=== PATIENT | female | born 1945 | race Caucasian/White ===

== ENCOUNTER 2023-08-23 09:44 | Observation (INO) | payer OTHER ==
[2023-08-23 10:41] LABS: Absolute Lymphocytes (CBC) 1.8 K/uL (0.7-4.9); Hematocrit 39.3 % (36.0-45.0); Lymphocytes % 24.6 % (15.3-44.8); MCV 87.2 fL (80-100); MPV 7.6 fL (7.6-11.3); Platelets 351 thou/uL (152-406); RBC Red Blood Cell Count 4.51 M/uL (3.86-4.86)
[2023-08-23 10:45] LABS: Specific Gravity < 1.005 (1.005-1.030); Urine Bilirubin NEGATIVE (Negative); Urine Blood Negative (Negative); Urine Clarity Clear (Clear); Urine Color Colorless (Yellow); Urine Glucose 4+ (Over) (Negative); Urine Protein NEGATIVE (Negative); Urine Urobilinogen Normal (Normal)
[2023-08-23 10:49] LABS: Protime INR 1.01
[2023-08-23 11:04] LABS: ALT/SGPT 59 U/L (13-56); AST/SGOT 46 U/L (15-37); Albumin 3.8 g/dL (3.4-5.0); Alkaline Phosphatase 101 U/L (45-117); BUN Blood Urea Nitrogen 11 mg/dL (7-18); Barbiturates NEGATIVE (NEGATIVE); Benzodiazepines NEGATIVE (NEGATIVE); Bicarbonate 26 mEq/L (21-32); Bilirubin Direct 0.2 mg/dL (0-0.2); Bilirubin Indirect, Calculated 0.2 mg/dL (0.2-0.8); Bilirubin Total 0.4 mg/dL (0.2-1.0); Cocaine NEGATIVE (NEGATIVE); Glomerular Filtration Rate 81 ml/min (=/>90); Glucose Level 280 mg/dL (74-106); METHAMPHETAM NEGATIVE (NEGATIVE); Methadone NEGATIVE (NEGATIVE); Opiates NEGATIVE (NEGATIVE); Phencyclidine NEGATIVE (NEGATIVE); Protein, Total 7.5 g/dL (6.4-8.2); Sodium Level 139 mEq/L (136-145); THC Cannibis NEGATIVE (NEGATIVE)
--- NOTE | 2023-08-23 11:36 | RAD REPORT ---
EXAM DESCRIPTION: CT - Head Brain Wo Cont - 08/23/2023 10:27 am CLINICAL HISTORY: hallucinations COMPARISON: No comparisons TECHNIQUE: Noncontrast head CT images were obtained without IV contrast. Multiplanar reformats were generated and reviewed. All CT scans are performed using dose optimization technique as appropriate and may include automated exposure control or mA/KV adjustment according to patient size. FINDINGS: No intracranial hemorrhage, mass, or edema. Midline structures are unremarkable. Normal ventricular caliber for age. Levy-white matter differentiation is preserved, without evidence of acute infarct. No abnormal extra- axial fluid collections. Mastoid air cells and visualized portions of the paranasal sinuses are clear. No acute bony findings. IMPRESSION: No evidence of an acute intracranial process.
--- NOTE | 2023-08-23 12:10 | EDPHYS ---
Physician Documentation [facility] Name: Dionne House Age: 77 yrs Sex: Female : 1945 Arrival Date: 08/23/2023 Time: 09:44 Bed 16 Private MD: ED Physician Chano Brasher HPI: 08/23 11:31 This 77 yrs old Female presents to ER via Ambulatory with complaints of Hallucinations. rn 11:31 The patient presents with hallucinations. Onset: The symptoms/episode began/occurred rn last night. Possible causes: unknown. Current symptoms: In the emergency department the patient's symptoms are unchanged from the initial presentation. The patient has not experienced similar symptoms in the past. The patient has not recently seen a physician. Patient reports last night began with hallucinations. Patient is seeing things move such as a trailer. Patient is also seeing people that she knows is not there. Patient is aware that these are hallucinations and not real. No recent medication changes. No head injury. Denies fever. Patient reports had a CAT scan with IV contrast yesterday of the pelvis for pelvic pain and diarrhea recently. Patient thinks she has had contrast before but not sure. Called her dimensional engineer to tell her about the hallucinations and told to come here for evaluation. Patient also reports has been taking a lot of Tylenol lately due to pelvic pain and leg pain.. Historical: - Allergies: 09:59 Ibuprofen; ll1 09:59 Sulfa (Sulfonamide Antibiotics); ll1 - PMHx: 09:59 Diabetes mellitus; Hypertensive disorder; ll1 - PSHx: 09:59 Cholecystectomy; ll1 - Immunization history:: Adult Immunizations up to date. - Social history:: Smoking status: Patient denies any tobacco usage or history of. - Family history:: not pertinent. - Hospitalizations: : No recent hospitalization is reported. ROS: 11:31 Constitutional: Negative for fever, chills, and weight loss, Cardiovascular: Negative rn for chest pain, palpitations, and edema, Respiratory: Negative for shortness of breath, cough, wheezing, and pleuritic chest pain, Abdomen/GI: Negative for nausea, vomiting, diarrhea, and constipation, Back: Negative for injury and pain, : Negative for injury, bleeding, discharge, and swelling, MS/Extremity: Negative for injury and deformity, Skin: Negative for injury, rash, and discoloration, Neuro: Negative for headache, weakness, numbness, tingling, and seizure, Exam: 11:31 Constitutional: This is a well developed, well nourished patient who is awake, alert, rn and in no acute distress. Head/Face: Normocephalic, atraumatic. Eyes: Pupils equal round and reactive to light, extra-ocular motions intact. Neck: No Meningismus. Cardiovascular: Regular rate and rhythm. No pulse deficits. Respiratory: No increased work of breathing, no retractions or nasal flaring. Abdomen/GI: Soft, non-tender MS/ Extremity: Pulses equal, no cyanosis. Neurovascular intact. Full, normal range of motion. Equal circumference. Neuro: Awake and alert, GCS 15, oriented to person, place, time, and situation. Cranial nerves II-XII grossly intact. Motor strength 5/5 in all extremities. Sensory grossly intact. Cerebellar exam normal. Vital Signs: 09:59 BP 178 / 82; Pulse 89; Resp 18; Temp 97.8; Pulse Ox 99% ; Weight 90.72 kg; Height 5 ft. ll1 3 in. ; Pain 0/10; 10:50 BP 158 / 83; Pulse 89; Resp 16 S; Pulse Ox 98% on R/A; kc6 11:42 BP 157 / 82; Pulse 89; Resp 16 S; Pulse Ox 97% on R/A; kc6 09:59 Body Mass Index 35.43 (90.72 kg, 160.02 cm) ll1 09:59 Pain Scale: Adult ll1 MDM: 09:46 Patient medically screened. rn 12:08 Differential Diagnosis: CVA, electrolyte abnormality, hypoglycemia, intracranial bleed, rn UTI, volume depletion. Data reviewed: vital signs, nurses notes, lab test result(s), radiologic studies, CT scan, and as a result, I will admit patient. Consideration of Admission/Observation Patient was admitted/placed on observation. Escalation of care including admission/observation considered. Management of patient was discussed with the following: Hospitalist: Will see and admit patient. Care significantly affected by the following chronic conditions: Diabetes, Hypertension. Counseling: I had a detailed discussion with the patient and/or guardian regarding the historical points, exam findings, and any diagnostic results supporting the discharge/admit diagnosis, lab results, radiology results, the need for further work-up and treatment in the hospital. Response to treatment: There is no appreciated change of the patient's symptoms at this time, and as a result, I will admit patient. ED course: No acute findings and workup today. Patient still having hallucinations. Negative urine. Negative CT head. No medication changes. No evidence of liver damage or elevated ammonia from Tylenol that she has been taken. Will admit to hospitalist service for further workup.. 08/23 10:08 Order name: ETOH Level; Complete Time: 11:21 rn 08/23 10:34 Order name: Basic Metabolic Panel; Complete Time: 11:21 EDMS 08/23 10:34 Order name: Liver (Hepatic) Function; Complete Time: 11:21 EDMS 08/23 10:34 Order name: Acetaminophen Level; Complete Time: 11:21 EDMS 08/23 10:34 Order name: CBC with Automated Diff; Complete Time: 11:21 EDMS 08/23 10:34 Order name: Protime (+INR); Complete Time: 11:21 EDMS 08/23 10:34 Order name: Urinalysis w/ reflexes; Complete Time: 11:21 EDMS 08/23 10:34 Order name: Urine Drug Screen; Complete Time: 11:21 EDMS 08/23 10:36 Order name: AMMONIA; Complete Time: 11:21 ll1 08/23 16:34 Order name: Glucose, Ancillary Testing EDMS 08/23 10:08 Order name: CT Head Brain wo Cont rn 08/23 10:19 Order name: Head Brain Wo Cont; Complete Time: 11:55 EDMS 08/23 13:21 Order name: Brain W/Wo Cont EDMS 08/23 10:08 Order name: IV Start; Complete Time: 10:21 rn Administered Medications: No medications were administered Disposition Summary: 08/23/23 12:11 Hospitalization Ordered Notes: Hospitalization Status: Observation rn Provider: Renny Brasher rn Condition: Stable(08/23/23 12:11) rn Problem: new(08/23/23 12:11) rn Symptoms: are unchanged(08/23/23 12:11) rn Bed/Room Type: Standard rn Location: Telemetry/MedSurg (observation)(08/23/23 16:41) bd Room Assignment: 415(08/23/23 16:41) bd Diagnosis - Visual hallucinations(08/23/23 12:11) rn Forms: - Medication Reconciliation Form rn - SBAR form rn - Leadership Thank You Letter rn Signatures: Dispatcher [employer] EDMS Georgia Deng Chano Roblero MD MD rn Lewis, Lynsay, RN RN ll1 Corrections: (The following items were deleted from the chart) 11:00 10:38 CBC+H.LAB.BRZ ordered. EDMS EDMS 11:00 10:38 BASIC METABOLIC PANEL+C.LAB.BRZ ordered. EDMS EDMS 11:00 10:38 ACETAMINOPHEN+C.LAB.BRZ ordered. EDMS EDMS 11:00 10:38 HEPATIC FUNCTION+C.LAB.BRZ ordered. EDMS EDMS 11:02 10:38 Urinalysis+U.LAB.BRZ ordered. EDMS EDMS 11:02 10:38 PROTIME (+INR)+COAG.LAB.BRZ ordered. EDMS EDMS 11:02 10:38 PTT, ACTIVATED+COAG.LAB.BRZ ordered. EDMS EDMS 11:02 10:38 URINE DRUG SCREEN+UC.LAB.BRZ ordered. EDMS EDMS 12:10 12:10 Home rn rn 12:10 12:10 new rn rn 12:10 12:10 have improved rn rn 12:10 12:10 Stable rn rn 12:10 12:10 Visual hallucinations rn rn 16:11 12:11 Telemetry/MedSurg (observation) rn bd 16:11 12:11 rn bd 16:41 16:11 BR ER HOLD bd bd 16:41 16:11 ERHOLD- bd bd
--- NOTE | 2023-08-23 12:10 | ER ---
Nurse's Notes [facility] Name: Dionne House Age: 77 yrs Sex: Female : 1945 Arrival Date: 08/23/2023 Time: 09:44 Bed 16 Private MD: Diagnosis: Visual hallucinations Presentation: 08/23 09:59 Chief complaint: Patient states: Started seeing things that weren't there between ll1 midnight and 1 AM. Got worse throughout the morning, so she came in. Had CT with IV contrast yesterday. No medicine changes otherwise. Coronavirus screen: Client denies travel out of the [place] in the last 14 days. At this time, the client does not indicate any symptoms associated with coronavirus-19. Ebola Screen: Patient denies travel to an Ebola-affected area in the 21 days before illness onset. Initial Sepsis Screen: Does the patient meet any 2 criteria? No. Patient's initial sepsis screen is negative. Does the patient have a suspected source of infection? No. Patient's initial sepsis screen is negative. Risk Assessment: Do you want to hurt yourself or someone else? Patient reports no desire to harm self or others. Onset of symptoms was August 23, 2023. 09:59 Method Of Arrival: Ambulatory ll1 09:59 Acuity: AMANDA 2 ll1 Historical: - Allergies: 09:59 Ibuprofen; ll1 09:59 Sulfa (Sulfonamide Antibiotics); ll1 - PMHx: 09:59 Diabetes mellitus; Hypertensive disorder; ll1 - PSHx: 09:59 Cholecystectomy; ll1 - Immunization history:: Adult Immunizations up to date. - Social history:: Smoking status: Patient denies any tobacco usage or history of. - Family history:: not pertinent. - Hospitalizations: : No recent hospitalization is reported. Screenin:00 [facility] ED Fall Risk Assessment (Adult) History of falling in the last 3 months, kc6 including since admission No falls in past 3 months (0 pts) Confusion or Disorientation No (0 pts) Intoxicated or Sedated No (0 pts) Impaired Gait No (0 pts) Mobility Assist Device Used No (0 pt) Altered Elimination No (0 pt) Score/Fall Risk Level 0 - 2 = Low Risk. Abuse screen: Denies threats or abuse. Denies injuries from another. Nutritional screening: No deficits noted. Tuberculosis screening: No symptoms or risk factors identified. Assessment: 10:00 General: Appears in no apparent distress. comfortable, Behavior is calm, cooperative, kc6 appropriate for age. Neuro: Level of Consciousness is awake, alert, obeys commands, Oriented to person, place, time, situation, Appropriate for age Reports headache. Cardiovascular: Capillary refill < 3 seconds. Respiratory: Airway is patent Trachea midline Respiratory effort is even, unlabored, Respiratory pattern is regular, symmetrical. GI: No signs and/or symptoms were reported involving the gastrointestinal system. : No signs and/or symptoms were reported regarding the genitourinary system. EENT: No signs and/or symptoms were reported regarding the EENT system. Derm: No signs and/or symptoms reported regarding the dermatologic system. Skin is intact, is healthy with good turgor, Skin is pink, warm \T\ dry. Musculoskeletal: No signs and/or symptoms reported regarding the musculoskeletal system. Circulation, motion, and sensation intact. Capillary refill < 3 seconds, Range of motion: intact in all extremities. 11:00 Reassessment: Patient appears in no apparent distress at this time. No changes from kc6 previously documented assessment. Patient and/or family updated on plan of care and expected duration. Pain level reassessed. Patient is alert, oriented x 3, equal unlabored respirations, skin warm/dry/pink. 12:00 Reassessment: Patient appears in no apparent distress at this time. No changes from kc6 previously documented assessment. Patient and/or family updated on plan of care and expected duration. Pain level reassessed. Patient is alert, oriented x 3, equal unlabored respirations, skin warm/dry/pink. 12:31 Reassessment: Kym Watters (friend) [phone]. kc6 13:00 Reassessment: Patient appears in no apparent distress at this time. No changes from kc6 previously documented assessment. Patient and/or family updated on plan of care and expected duration. Pain level reassessed. Patient is alert, oriented x 3, equal unlabored respirations, skin warm/dry/pink. Vital Signs: 09:59 BP 178 / 82; Pulse 89; Resp 18; Temp 97.8; Pulse Ox 99% ; Weight 90.72 kg; Height 5 ft. ll1 3 in. ; Pain 0/10; 10:50 BP 158 / 83; Pulse 89; Resp 16 S; Pulse Ox 98% on R/A; kc6 11:42 BP 157 / 82; Pulse 89; Resp 16 S; Pulse Ox 97% on R/A; kc6 09:59 Body Mass Index 35.43 (90.72 kg, 160.02 cm) ll1 09:59 Pain Scale: Adult [facility] ED Course: 09:46 Patient arrived in ED. mr 09:46 Chano Brasher MD is Attending Physician. rn 09:50 Arm band placed on Patient placed in an exam room, on a stretcher. ll1 09:52 Anupama Juarez, RN is Primary Nurse. kc6 10:00 Patient has correct armband on for positive identification. Bed in low position. Call kc6 light in reach. Side rails up X 1. Adult w/ patient. Client placed on continuous cardiac and pulse oximetry monitoring. NIBP monitoring applied. 10:01 Triage completed. ll1 10:21 Inserted saline lock: 20 gauge in right antecubital area, using aseptic technique. kc6 Blood collected. Patient maintains SpO2 saturation greater than 95% on room air. 10:28 Head Brain Wo Cont In Process Unspecified. EDMS 10:39 ETOH Level Sent. kc6 12:10 Renny Brasher MD is Hospitalizing Provider. rn 14:15 No provider procedures requiring assistance completed. Patient admitted, IV remains in kc6 place. 16:49 Report given to DENITA Weber. kc6 Administered Medications: No medications were administered Medication: 14:15 VIS not applicable for this client. kc6 Outcome: 12:10 Discharge ordered by . rn 12:11 Decision to Hospitalize by Provider. rn 14:15 Admitted to ER Hold. Please see [facility] for further documentation. kc6 14:15 Condition: good 14:15 Instructed on the need for admit, 17:01 Patient left the ED. kc6 Signatures: Dispatcher [employer] EDMS Marija Vega, Reg Reg Chano Brasher MD MD rn Lewis, Lynsay, RN RN ll1 Anupama Juarez, DENITA RN kc Corrections: (The following items were deleted from the chart) 11:00 10:39 CBC+H.LAB.BRZ drawn and sent. kc6 EDMS 11:00 10:39 BASIC METABOLIC PANEL+C.LAB.BRZ drawn and sent. kc6 EDMS 11:00 10:39 HEPATIC FUNCTION+C.LAB.BRZ drawn and sent. kc6 EDMS 11: 10:39 ACETAMINOPHEN+C.LAB.BRZ drawn and sent. kc6 EDMS 11: 10:39 Urinalysis+U.LAB.BRZ drawn and sent. kc6 EDMS 11: 10:39 PROTIME (+INR)+COAG.LAB.BRZ drawn and sent. 6 EDMS 11: 10:39 PTT, ACTIVATED+COAG.LAB.BRZ drawn and sent. kc6 EDMS 11: 10:39 URINE DRUG SCREEN+UC.LAB.BRZ drawn and sent. [facility] EDMS
--- NOTE | 2023-08-23 13:31 | P.HP ---
Certification for Inpatient Patient admitted to: Observation With expected LOS: <2 Midnights Patient will require the following post-hospital care: None Practitioner: I am a practitioner with admitting privileges, knowledge of patient current condition, hospital course, and medical plan of care. Services: Services provided to patient in accordance with Admission requirements found in Title 42 Section 412.3 of the Code of Federal Regulations Patient History Date of Service: 08/23/23 Reason for admission: Visual hallucinations History of Present Illness: 77-year-old female with history of hwu-bbymfyp-gghfhurij diabetes, hypertension presents to the emergency department chief complaint of visual hallucinations. She reports that on 08/22/2023 she was seen by her [employer]ACH [employer] provider who performed a routine pelvic exam and noted some adnexal tenderness, a subsequent ultrasound was performed at bedside and unable to visualize the ovary. She was then sent for a CT of the abdomen pelvis with p.o. and IV contrast as she is also been having chronic diarrhea for the last [address] showed mild fatty infiltration of the liver no other acute findings. Patient reports once returning home after approximately 1 hour she began to have visual hallucinations seeing people and objects that were not really there. The hallucinations went on to the evening and were worse when she woke up this morning, also complained of a mild headache at that time. She called her [employer] doctor who recommended she come to the hospital for evaluation. At this time she reports her symptoms have improved significantly although she is still having some mild visual hallucinations. She was evaluated in the emergency department her labs were significant for glucose of 280 AST 46 ALT 59 ammonia level normal, no EtOH present in the serum, UDS is negative. Patient does admit to taking approximately 5 g of Tylenol daily for the last few years, counseled on need for reduced dose of Tylenol and follow-up with pain management. Given her ongoing visual loose Nations we will admit her under observation and obtain an MRI. - Past Medical/Surgical History -: Iqu-rzvommn-afbfwblfd diabetes -: Hypertension -: Carpal tunnel repair Psychosocial/ Personal History: Lives at home with her son - Family History Mother -: Cancer Father -: Heart disease Brother -: Heart disease - Social History Alcohol use: No CD- Drugs: No Caffeine use: Yes Place of Residence: Home Review of Systems 10-point ROS is otherwise unremarkable Neurological: Other (Visual hallucinations) Physical Examination - Physical Exam General: Alert, In no apparent distress, Oriented x3 HEENT: Atraumatic, PERRLA, Mucous membr. moist/pink, EOMI, Sclerae nonicteric Neck: Supple, 2+ carotid pulse no bruit, No LAD, Without JVD or thyroid abnormality Respiratory: Clear to auscultation bilaterally, Normal air movement Cardiovascular: Regular rate/rhythm, Normal S1 S2 Gastrointestinal: Normal bowel sounds, No tenderness Musculoskeletal: No tenderness Integumentary: No rashes Neurological: Normal gait, Normal speech, Normal strength at 5/5 x4 extr, Normal tone, Sensation intact, Normal affect - Studies Laboratory Data (last 24 hrs) 08/23/23 08/23/23 08/23/23 10:24 10:24 10:24 WBC 7.50 Hgb 13.1 Hct 39.3 Plt Count 351 PT 11.1 INR 1.01 APTT Sodium 139 Potassium 4.0 BUN 11 Creatinine 0.76 Glucose 280 H Total Bilirubin 0.4 AST 46 H ALT 59 H Alkaline Phosphatase 101 08/23/23 08/23/23 08/23/23 10:08 10:08 10:08 WBC Cancelled Hgb Cancelled Hct Cancelled Plt Count Cancelled PT Cancelled INR Cancelled APTT Cancelled Sodium Cancelled Potassium Cancelled BUN Cancelled Creatinine Cancelled Glucose Cancelled Total Bilirubin Cancelled AST Cancelled ALT Cancelled Alkaline Phosphatase Cancelled Assessment and Plan - Plan Assessment: Visual hallucinations Diabetes mellitus type 0ruv-hhqezfe-gypdwsvws with hyperglycemia Hypertension Fatty liver Chronic accidental acetaminophen overdose Plan: Visual hallucinations Unclear etiology, occurred about 1 hour after receiving p.o. and IV contrast for CT scan Symptoms worse yesterday evening, this morning, seem to be improving No changes in medications or use of sedatives/opiates for CT yesterday No similar episodes in the past No concern for ingestion of hallucinogens or other toxic substances Will obtain MRI with and without contrast Diabetes mellitus type [id number]-onoqdbw-bvexvjcwb with hyperglycemia ACHS Accu-Chek, sliding scale insulin Hypertension Continue home medication once verified Fatty liver Noted on CT scan, also very mild elevations in LFTs Discussed appropriate use of acetaminophen Chronic accidental acetaminophen overdose Patient reports taking over 5 g of acetaminophen daily for the past few years She takes it for pain to her hip, thighs, recommend outpatient follow-up with PCP and pain management Recommend no more than 4 g of acetaminophen daily DVT PPX:lovenox Code status:full Discharge Plan: Home Plan to discharge in: 24 Hours - Advance Directives Does patient have a Living Will: No Does patient have a Durable POA for Healthcare: No - Code Status/Comfort Care Code Status Assessed: Yes (Full code) Critical Care: No Time Spent Managing Pts Care (In Minutes): 55
[2023-08-23] MEDS ORDERED: ONDANSETRON 4 MG/2 ML VIAL IV PRN (14:10)
--- NOTE | 2023-08-23 14:45 | RAD REPORT ---
EXAM DESCRIPTION: MRI - Brain W/Wo Cont - 08/23/2023 2:38 pm CLINICAL HISTORY: visual hallucinations Headache, drowsiness, alteration of awareness COMPARISON: Head Brain Wo Cont dated 08/23/2023 TECHNIQUE: Multi-sequence, multiplanar MR imaging of the brain was performed with contrast. FINDINGS: No intracranial hemorrhage, hydrocephalus, or extra-axial fluid collection. No edema or sh ift of midline structures. No intracranial mass. DWI is negative for acute CVA. The midline structures are normally formed. Mastoid air cells and paranasal sinuses are clear. Post-contrast images show no abnormal enhancement to suggest tumor or infection. IMPRESSION: No acute or concerning intracranial abnormalities. No pathologic post-contrast enhancement suspected.
[2023-08-23 14:46] VITALS: BMI 35.0
[2023-08-23] MEDS: ENOXAPARIN 40 MG/0.4 ML SQ SCH (15:00)
[2023-08-23] MEDS: INSULIN REGULAR (HUMAN) 100 UNIT/ML SQ SCH ×2 (16:28→21:00)
[2023-08-23] MEDS: TRAMADOL HCL 50 MG TAB PO PRN ×2 (16:28→22:42)
[2023-08-23] MEDS ORDERED: ENOXAPARIN 40 MG/0.4 ML SQ ONE (16:38)
[2023-08-23] MEDS ORDERED: TRAMADOL HCL 50 MG TAB ONE (16:38)
[2023-08-23] MEDS ORDERED: AMLODIPINE 5 MG TAB PO ONE (17:41)
[2023-08-23 23:54] LABS: Renal Epithelial <5 /HPF (None Seen); Specific Gravity 1.013 (1.005-1.030); Urine Bacteria None Seen /HPF (<20); Urine Bilirubin NEGATIVE (Negative); Urine Blood Negative (Negative); Urine Clarity Clear (Clear); Urine Color Light-Yellow (Yellow); Urine Glucose TRACE (Negative); Urine Mucus Slight /HPF (None Seen); Urine Protein NEGATIVE (Negative); Urine RBC None Seen /HPF (None Seen); Urine Urobilinogen Normal (Normal); Urine pH 6.5 (5.0-7.0)
[2023-08-24 07:01] LABS: Absolute Lymphocytes (CBC) 1.8 K/uL (0.7-4.9); Hematocrit 36.6 % (36.0-45.0); Lymphocytes % 23.2 % (15.3-44.8); MCV 86.4 fL (80-100); MPV 7.9 fL (7.6-11.3); Platelets 334 thou/uL (152-406); RBC Red Blood Cell Count 4.24 M/uL (3.86-4.86)
[2023-08-24 07:22] LABS: Albumin 3.2 g/dL (3.4-5.0); Bilirubin Total 0.4 mg/dL (0.2-1.0); Magnesium 2.3 mg/dL (1.6-2.4); Potassium 3.7 mEq/L (3.5-5.1); Protein, Total 6.6 g/dL (6.4-8.2); Thyroid Stimulating Hormone 2.76 uIU/mL (0.358-3.740)
[2023-08-24] MEDS: INSULIN REGULAR (HUMAN) 100 UNIT/ML SQ SCH (07:50)
[2023-08-24] MEDS: ENOXAPARIN 40 MG/0.4 ML SQ SCH (07:51)
[2023-08-24] MEDS: TRAMADOL HCL 50 MG TAB PO PRN (07:56)
[2023-08-24 07:58] VITALS: BP 136/78
[2023-08-24 08:29] VITALS: TEMP 97.2
[2023-08-24] MEDS ORDERED: AMLODIPINE 5 MG TAB PO SCH (09:00)
--- NOTE | 2023-08-24 09:45 | P.DS ---
Admission Date: 08/23/23 Discharge Date: 08/24/23 Disposition: ROUTINE DISCHARGE Discharge Condition: GOOD Reason for Admission: Visual hallucinations Brief History of Present Illness: 77-year-old female with history of [id number] diabetes, hypertension presents to the emergency department chief complaint of visual hallucinations. She reports that on 08/22/2023 she was seen by her DENTAL TECHNICIAN provider who performed a routine pelvic exam and noted some adnexal tenderness, a subsequent ultrasound was performed at bedside and unable to visualize the ovary. She was then sent for a CT of the abdomen pelvis with p.o. and IV contrast as she is also been having chronic diarrhea for the last [address] showed mild fatty infiltration of the liver no other acute findings. Patient reports once returning home after approximately 1 hour she began to have visual hallucinations seeing people and objects that were not really there. The hallucinations went on to the evening and were worse when she woke up this morning, also complained of a mild headache at that time. She called her DENTAL TECHNICIAN doctor who recommended she come to the hospital for evaluation. At this time she reports her symptoms have improved significantly although she is still having some mild visual hallucinations. She was evaluated in the emergency department her labs were significant for glucose of 280 AST 46 ALT 59 ammonia level normal, no EtOH present in the serum, UDS is negative. Patient does admit to taking approximately 5 g of Tylenol daily for the last few years, counseled on need for reduced dose of Tylenol and follow-up with pain management. Given her ongoing visual loose Nations we will admit her under observation and obtain an MRI. Hospital Course: Assessment: Visual hallucinations Diabetes mellitus type [id number] with hyperglycemia Hypertension Fatty liver Chronic accidental acetaminophen overdose Patient was admitted to hospital for visual hallucinations that started after having a CT with IV contrast. Her labs were unremarkable and did not explain her symptomology, CT head without contrast was performed which was also negative for acute findings. She was admitted under observation and an MRI with and without contrast was performed which was negative for any findings that would explain her symptoms or any other acute findings. Throughout the evening patient symptoms completely resolved, she is currently no longer having any visual hallucinations. On exam she is completely neurologically intact with no deficits. She will be discharged to follow-up with her primary care doctor and neurology in 1 to 2 weeks. Of note patient is been taking over 5 g of Tylenol daily for the past 2 years, her LFTs are mildly elevated and CT scan of her abdomen pelvis did show mild fatty liver. She was counseled on taking no more than 4 g of Tylenol daily at most and following up with her PCP/pain management for further adjustment of her pain medications. Vital Signs/Physical Exam: Temp Pulse Resp BP Pulse Ox 97.2 F 81 20 136/78 95 08/24/23 08:00 08/24/23 08:00 08/24/23 08:00 08/24/23 08:00 08/24/23 08:00 General: Alert, In no apparent distress, Oriented x3 HEENT: Atraumatic, PERRLA Neck: Supple Respiratory: Clear to auscultation bilaterally, Normal air movement Cardiovascular: Regular rate/rhythm, Normal S1 S2 Gastrointestinal: Normal bowel sounds, No tenderness Musculoskeletal: No tenderness Integumentary: No rashes Neurological: Normal speech, Normal strength at 5/5 x4 extr, Normal tone, Sensation intact, Cranial nerves 3-12 intact Laboratory Data at Discharge: WBC 7.70 thou/uL (4.3-10.9) 08/24/23 06:00 Hgb 12.4 g/dL (12.0-15.0) 08/24/23 06:00 Hct 36.6 % (36.0-45.0) 08/24/23 06:00 Plt Count 334 thou/uL (152-406) 08/24/23 06:00 PT 11.1 SECONDS (9.5-12.5) 08/23/23 10:24 INR 1.01 08/23/23 10:24 APTT Cancelled 08/23/23 10:08 Sodium 136 mEq/L (136-145) 08/24/23 06:00 Potassium 3.7 mEq/L (3.5-5.1) 08/24/23 06:00 BUN 12 mg/dL (7-18) 08/24/23 06:00 Creatinine 0.69 mg/dL (0.55-1.02) 08/24/23 06:00 Glucose 240 mg/dL (74-106) H 08/24/23 06:00 Magnesium 2.3 mg/dL (1.6-2.4) 08/24/23 06:00 Total Bilirubin 0.4 mg/dL (0.2-1.0) 08/24/23 06:00 AST 59 U/L (15-37) H 08/24/23 06:00 ALT 64 U/L (13-56) H 08/24/23 06:00 Alkaline Phosphatase 88 U/L (45-117) 08/24/23 06:00 Home Medications: Amlodipine [Norvasc*] 5 mg PO DAILY 08/23/23 Atorvastatin Calcium [Lipitor*] 20 mg PO BEDTIME 08/23/23 Letanoprast 1 gtt EACH EYE BEDTIME 08/23/23 Metformin HCl [Glucophage*] 500 mg PO BIDWM 08/23/23 Nystatin Cream [Mycostatin 100MU/Gm Cream*] 15 appl TOP DAILY 08/23/23 Pantoprazole [Protonix Tab*] 40 mg PO DAILY 08/23/23 Pramipexole [Mirapex*] 1 mg PO TID 08/23/23 Semaglutide [Rybelsus] 7 mg PO DAILY 08/23/23 Tramadol HCl 100 mg PO BEDTIME 08/23/23 Zolpidem Tartrate [Ambien*] 10 mg PO BEDTIME 08/23/23 Physician Discharge Instructions: Patient was admitted to hospital for visual hallucinations that started after having a CT with IV contrast. Her labs were unremarkable and did not explain her symptomology, CT head without contrast was performed which was also negative for acute findings. She was admitted under observation and an MRI with and without contrast was performed which was negative for any findings that would explain her symptoms or any other acute findings. Throughout the evening patient symptoms completely resolved, she is currently no longer having any visual hallucinations. On exam she is completely neurologically intact with no deficits. She will be discharged to follow-up with her primary care doctor and neurology in 1 to 2 weeks. Of note patient is been taking over 5 g of Tylenol daily for the past 2 years, her LFTs are mildly elevated and CT scan of her abdomen pelvis did show mild fatty liver. She was counseled on taking no more than 4 g of Tylenol daily at most and following up with her PCP/pain management for further adjustment of her pain medications. Diet: ADA Activity: Ad alvin Followup: Eliot Pereyra MD [ASSOCIATE-ACTIVE - CAN ADMIT] - 1-2 Weeks Delgado Vasquez MD [Primary Care Provider] - 1-2 Weeks Time spent managing pt's care (in minutes): 25
[2023-08-24 09:46] VITALS: O2SAT 95
== END 2023-08-24 11:05 | disposition home or self-care (01) ==
LOC: ER 09:44 → ERHOLD 13:33 → 4TH 16:50
PROVIDERS: ADMIT Hospitalist; ATTEND Hospitalist
DX: R44.1 Visual hallucinations (principal); I10 Essential (primary) hypertension; R51.9 Headache, unspecified; K76.0 Fatty (change of) liver, not elsewhere classified; T39.1X1A Poisoning by 4-Aminophenol derivatives, accidental (unintentional), initial encounter; E11.65 Type 2 diabetes mellitus with hyperglycemia
CPT/HCPCS: 85025 ×2; 81001; 80048; 36415; 82140; 83735; 85610; 82947 ×3; 80076; 84443; 81003; 80053; 80307; 70450; 70553; 99285; 80143; 82077; A9577; J1815 ×2; J1650 ×2; G0378 ×4